=== PATIENT | female | born 1990 | race Hispanic/Latino ===

== ENCOUNTER 2024-12-11 18:49 | Inpatient (IN) | payer MEDICAID, OTHER ==
[2024-12-11 19:13] VITALS: BMI 41.3
[2024-12-11] MEDS ORDERED: hydrALAZINE 20 MG/ML VIAL SLOW IVP PRN ×3 (19:17→22:27)
[2024-12-11 19:46] LABS: Fetal Membranes Rupture No Membranes Rupture (No Rupture)
[2024-12-11] MEDS ORDERED: Acetaminophen 500 MG TAB PO PRN (20:02)
[2024-12-11] MEDS ORDERED: Methylergonovine 0.2 MG/ML VIAL IM PRN (20:02)
[2024-12-11] MEDS ORDERED: Lidocaine 1% (PF) 30 ML VIAL SC PRN (20:02)
[2024-12-11] MEDS ORDERED: Diphenoxylate HCl/Atropine Tablet PO PRN (20:02)
[2024-12-11] MEDS ORDERED: Carboprost 250 MCG/ML AMP IM PRN (20:02)
[2024-12-11] MEDS ORDERED: Ibuprofen 800 MG TAB PO PRN (20:02)
[2024-12-11] MEDS ORDERED: Oxytocin 30 units/NS 500 ML 500 ML IV SCH ×2 (20:15)
[2024-12-11 20:21] LABS: Hematocrit 35.3 % (34.9-44.5); Hemoglobin 11.9 g/dL (12.0-15.5); Mean Corpuscular Hemoglobin 27.6 pg (27.0-33.0); Mean Corpuscular Volume 81.9 fL (81.6-98.3); Platelet Count 312 10x3/uL (150-450); Red Blood Cell (RBC) Count 4.31 10x6/uL (3.90-5.03); White Blood Cell (WBC) Count 11.25 10x3/uL (3.5-10.5)
[2024-12-11] MEDS: Penicillin G Potassium 5 MILL.UNITS in Sodium Chloride 0.9% 100 ML IVPB SCH (20:27)
[2024-12-11] MEDS: fentaNYL/Ropivacaine Epidural 100 ML ONE (20:40)
[2024-12-11 21:00] LABS: Hep B Surf Ag - L&D Non-Reactive S/CO (NonReactive); Syphilis Antibody Index 0.07 S/CO (<1.00 Non-Reactive)
[2024-12-11 21:07] LABS: Glucose 95 mg/dL (70-105)
[2024-12-11] MEDS: Ondansetron PF 4 MG/2 ML Vial IVP PRN (21:28)
[2024-12-11] MEDS ORDERED: diphenhydrAMINE 50 MG/ML VIAL IVP PRN (21:37)
[2024-12-11] MEDS ORDERED: Acetaminophen 325 MG TAB PO PRN (21:37)
[2024-12-11] MEDS ORDERED: Ondansetron PF 4 MG/2 ML Vial IVP PRN (21:37)
[2024-12-11] MEDS ORDERED: fentaNYL 2 mcg/Ropivacaine 0.2% Epidural 100 ML CADD EPIDURAL SCH (21:45)
[2024-12-11] MEDS ORDERED: Communication Order-Pharmacy FS SCH (21:45)
[2024-12-11] MEDS ORDERED: Lanolin Ointment 7 GM TUBE TOP PRN (22:27)
[2024-12-11] MEDS ORDERED: Preparation H Ointment 28 GM TUBE PR PRN (22:27)
[2024-12-11] MEDS ORDERED: Milk Of Magnesia 30 ML UDCUP PO PRN (22:27)
[2024-12-11] MEDS ORDERED: Bisacodyl 10 MG SUPP PR PRN (22:27)
[2024-12-11 22:34] LABS: HIV (1/2) Antibody/Antigen Non-Reactive (NonReactive); HIV 1/2 INDEX 0.12 S/CO (<1.00)
[2024-12-11] MEDS: Diphenoxylate HCl/Atropine Tablet PO PRN (22:51)
[2024-12-11] MEDS: Tranexamic Acid 1,000 MG/10 ML VIAL IVP PRN (22:58)
[2024-12-12] MEDS ORDERED: Penicillin G 2.5 MILL.units 2.5 MILL.UNITS in Premix 1 BAG IVPB SCH (00:15)
[2024-12-12] MEDS: Ibuprofen 800 MG TAB PO SCH (05:21)
[2024-12-12] MEDS: Boostrix 0.5 ML (Tdap) VIAL (>/=7 yrs of age) IM ONE (07:20)
[2024-12-12] MEDS: Ferrous Sulfate 325 MG TAB PO SCH (07:20)
[2024-12-12] MEDS ORDERED: Bupivacaine 0.25% HCL 30 ML VIAL ONE (17:49)
[2024-12-13 08:27] VITALS: BP 125/83; TEMP 97.7
== END 2024-12-13 10:30 | disposition home or self-care (01) | DRG 806 ==
LOC: CSHLD/OP 18:49 → CSHLD 20:27 → CSHPP 12-12 00:40
PROVIDERS: ADMIT Obstetrics & Gynecology; ATTEND Obstetrics & Gynecology
PROC: 10E0XZZ Delivery of Products of Conception, External Approach (ICD-10-PCS; principal; 2024-12-11)
PROC: 0UQMXZZ Repair Vulva, External Approach (ICD-10-PCS; 2024-12-11)
DX: O42.02 Full-term premature rupture of membranes, onset of labor within 24 hours of rupture (principal); O10.92 Unspecified pre-existing hypertension complicating childbirth; Z37.0 Single live birth; Z3A.38 38 weeks gestation of pregnancy; Z79.84 Long term (current) use of oral hypoglycemic drugs; Z90.49 Acquired absence of other specified parts of digestive tract; O24.425 Gestational diabetes mellitus in childbirth, controlled by oral hypoglycemic drugs
CPT/HCPCS: 36415; 51701; 82947; 82951; 84112; 85027; 86780; 86850; 86900; 86901; 87340; 87389; 99285; J0665; J2405; J2540; J3010